=== PATIENT | female | born 1960 | race American Indian/Alaskan Native ===

== ENCOUNTER 2017-01-01 11:33 | Outpatient (CLI) | payer MEDICARE ==
--- NOTE | 2017-01-01 13:07 | Mammography Report ---
BILATERAL MAMMOGRAM with CAD: HISTORY: Cancer screening. FINDINGS: The breast tissue is extremely dense (>75% glandular). This may lower the sensitivity of mammography. No mass, distortion, suspicious calcification, or skin change is seen. IMPRESSION: Negative mammogram. There is no mammographic evidence of malignancy. RECOMMENDATION: Follow-up per ACS guidelines. BI-RADS CATEGORY: 1 = Negative ACR BI-RADS MAMMOGRAPHIC CODES: 0 = Needs additional imaging evaluation; 1 = Negative; 2 = Benign; 3 = Probably benign; 4 = Suspicious; 5 = Malignant; 6 = Known biopsy-proven malignancy COMMENT: 1. Dense breast tissue, i.e., adenosis, fibrocystic changes, etc., may obscure an underlying neoplasm. 2. Approximately 10% of cancers are not detected with mammography. 3. A negative mammography report should not delay biopsy if a clinically suspicious mass is present. COMMENT: [facility]
== END 2017-01-01 11:34 | disposition home or self-care (01) ==
LOC: SPVWC 11:33
PROVIDERS: ATTEND Internal Medicine Hematology & Oncology
DX: Z12.31 Encounter for screening mammogram for malignant neoplasm of breast (principal)
CPT/HCPCS: 77067; G0202

== ENCOUNTER 2017-03-30 09:23 | Outpatient (CLI) | payer MEDICARE ==
--- NOTE | 2017-03-30 11:32 | Cat Scan Report ---
CT CHEST WITH CONTRAST: HISTORY: Abnormal weight loss. COMPARISON: none. TECHNIQUE: Helical CT in 1.25mm intervals following IV contrast. Sagittal and coronal reformatted images. FINDINGS: Thyroid gland: Normal. Tracheobronchial tree: Normal. Esophagus: Normal. Heart: Normal. Pericardium: Normal. Mediastinum: There are mild aortic calcifications. No mediastinal mass or adenopathy is identified. Lung Jain: Moderate emphysematous changes are identified bilaterally. No evidence for mass, pneumonia or cavitating lesion. Minor segmental atelectasis or scarring is noted in the medial right upper lobe. Pleural Spaces: Normal. Musculoskeletal: Intact. No bony lesion identified. IMPRESSION: Emphysematous changes.
--- NOTE | 2017-03-30 11:36 | Cat Scan Report ---
CT ABDOMEN PELVIS WITH CONTRAST: HISTORY: Abnormal weight loss. COMPARISON: none. TECHNIQUE: Helical CT in 1.25mm intervals following IV contrast. Sagittal and coronal reconstructions. FINDINGS: Liver: Normal. Biliary system: Normal. Pancreas: Normal. Spleen: Normal. Kidneys/ureters/bladder: There are scattered simple cysts of both kidneys. The largest cyst measures 3 cm near the midpole of the left kidney. The ureters and bladder are unremarkable. Adrenal glands: Normal. Aorta: Moderate diffuse calcifications but no aneurysm or high-grade stenosis is identified. Intestines: Within normal limits given no oral contrast was administered. No evidence for obstruction or inflammatory changes. Appendix: Normal. Pelvic viscera: A solitary peripherally calcified 2.2 cm fibroid is noted to the left of midline. The adnexa are unremarkable. Ascites: None. Adenopathy: None. Musculoskeletal: Intact. No bony lesion identified. IMPRESSION: No acute process, mass or adenopathy is identified. Bilateral simple renal cysts. Mild to moderate atherosclerotic disease in the aorta.
--- NOTE | 2017-03-30 15:09 | Nuclear Medicine Report ---
BONE SCAN: History: Initial staging of lung cancer. After injection of isotope, gamma camera imaging of the bony system was done. There is a normal uptake of isotope throughout the bony structures without areas of significantly increased or decreased uptake. Normal uptake in the urinary system is seen. IMPRESSION: Normal bone scan.
== END 2017-03-30 09:24 | disposition home or self-care (01) ==
LOC: NM 09:23 → CT 09:23 → NM 09:24
PROVIDERS: ATTEND Internal Medicine Hematology & Oncology
DX: I65.29 Occlusion and stenosis of unspecified carotid artery (principal); N28.1 Cyst of kidney, acquired; I70.0 Atherosclerosis of aorta; D25.9 Leiomyoma of uterus, unspecified; R63.4 Abnormal weight loss; Z85.118 Personal history of other malignant neoplasm of bronchus and lung
CPT/HCPCS: 71260; 74177; 78306; A9503; Q9967